=== PATIENT | male | born 2000 | race Caucasian/White ===

== ENCOUNTER 2020-12-15 19:32 | Emergency (ER) | payer OTHER ==
[~2020-12-15] VITALS: Ht 185.4 cm; Wt 102.3 kg
[2020-12-15 19:40] VITALS: BP 146/92; TEMP 98.8
[2020-12-15 20:11] VITALS: PULSE 71
== END 2020-12-15 20:11 | disposition home or self-care (01) ==
LOC: COL.ER
DX: S61.205A Unspecified open wound of left ring finger without damage to nail, initial encounter (principal); W26.0XXA Contact with knife, initial encounter